=== PATIENT | male | born 1965 | race Caucasian/White ===

== ENCOUNTER → 2023-04-30 | Outpatient (REF) | LOC: M PLAIMG 14:00 | PROVIDERS: ATTEND Internal Medicine | DX: R52 Pain, unspecified (principal) ==

== ENCOUNTER 2024-12-21 17:02 | Inpatient (IN) | payer BC, OTHER ==
[~2024-12-21] VITALS: Ht 188 cm; Wt 101.1 kg
[2024-12-21 17:52] LABS: BASO # 0.1 10^3/uL (0.0-0.2); BASO % 0.2 % (0.0-1.0); EOS # 0.0 10^3/uL (0.0-0.5); EOS % 0.0 % (0.0-3.0); LYMPH # 0.7 10^3/uL (1.5-5.0); LYMPH % 3.0 % (24.0-44.0); MONO # 1.5 10^3/uL (0.0-0.8); MONO % 6.5 % (2.0-8.0); NEUTROPHILS # 20.5 10^3/uL (1.5-8.5); NEUTROPHILS % 89.6 % (36.0-66.0); PLATELET COUNT, AUTOMATED 288 10^3/uL (150-450)
[2024-12-21] MEDS: cefTRIAXone SOD 2 GM in DEXTROSE 5% (D5W) ADV/MINI-BAG 50 ML IV ONE (17:55)
[2024-12-21] MEDS: ACETAMINOPHEN 500 MG TAB PO ONE (17:55)
[2024-12-21 18:04] LABS: ALT/SGPT 12.0 U/L (7.0-40); AST/SGOT 12.0 U/L (<34); CALCIUM LEVEL 9.3 MG/DL (8.3-10.6); CARBON DIOXIDE LEVEL 22.0 MMOL/L (20-31); CHLORIDE LEVEL 103.0 MMOL/L (98-107); CREATININE FOR GFR 1.36 MG/DL (0.70-1.30); GLOMERULAR FILTRATION RATE 59.2 (>49); POTASSIUM SERUM 3.7 MMOL/L (3.5-5.1); SODIUM LEVEL 136.0 MMOL/L (136-145)
[2024-12-21 18:07] LABS: KETONE, URINE AUTO RFX NEGATIVE (NEGATIVE); MUCUS, URINE RFX SMALL (NEGATIVE); NITRITE, URINE AUTO RFX NEGATIVE (NEGATIVE); RBC, URINE AUTO RFX 40 /HPF (0-3); SQUAM EPITHELIAL CELL UR AURFX 2 /HPF (0-6)
[2024-12-21 18:13] LABS: LEUKOCYTE ESTERASE UR AUTO RFX 2+ (NEGATIVE); WBC, URINE AUTO RFX TNTC /HPF (0-3)
[2024-12-21] MEDS: LIDOCAINE 2% 5 ML JELLY UROJET TOP ONE (18:53)
[2024-12-21] MEDS ORDERED: HOME MED LIST COMPLETE! XX SCH (19:35)
[2024-12-21] MEDS ORDERED: ACETAMINOPHEN *IV* 500 MG in IV 1 EA IV PRN (20:25)
[2024-12-21] MEDS: DOCUSATE SODIUM 100 MG CAPSULE PO SCH (21:21)
[2024-12-21] MEDS: HEPARIN SOD 5000 UNITS/ML 1 ML VIAL/SYRINGE SC SCH (21:22)
[2024-12-21] MEDS: NS (Normal Saline) 0.9% 1,000 ML IV ONE (22:32)
[2024-12-21] MEDS: TAMSULOSIN 0.4 MG CAP PO SCH (22:44)
[2024-12-21] MEDS ORDERED: NS (Normal Saline) 0.9% 1,000 ML IV SCH (23:00)
[2024-12-22] MEDS: LR 1,000 ML IV SCH (00:26)
[2024-12-22] MEDS: PANTOPRAZOLE 40MG VIAL IV ONE (01:29)
[2024-12-22] MEDS: ACETAMINOPHEN 500 MG TAB PO PRN (01:29)
[2024-12-22] MEDS: ONDANSETRON 4MG 2ML VIAL IV ONE (01:29)
[2024-12-22 01:30] LABS: AMPHETAMINES LEVEL URINE NEGATIVE (NEGATIVE); BARBITURATES URINE NEGATIVE (NEGATIVE); BENZODIAZEPINES URINE NEGATIVE (NEGATIVE); COCAINE METABOLITE URINE NEGATIVE (NEGATIVE); METHADONE URINE NEGATIVE (NEGATIVE); OPIATES URINE NEGATIVE (NEGATIVE); PHENCYCLIDINE URINE NEGATIVE (NEGATIVE)
[2024-12-22 01:32] LABS: CANNABINOIDS URINE POSITIVE (NEGATIVE)
[2024-12-22 03:17] LABS: C REACTIVE PROTEIN QUANTITATIV 22.52 MG/DL (<1.0)
[2024-12-22] MEDS: FOLIC ACID 1 MG TAB PO SCH (08:16)
[2024-12-22] MEDS: CYANOCOBALAMIN 500 MCG TAB PO SCH (08:16)
[2024-12-22] MEDS: THIAMINE 100 MG TAB PO SCH (08:16)
[2024-12-22 08:28] LABS: BASO # 0.1 10^3/uL (0.0-0.2); BASO % 0.2 % (0.0-1.0); EOS # 0.0 10^3/uL (0.0-0.5); EOS % 0.1 % (0.0-3.0); LYMPH # 1.3 10^3/uL (1.5-5.0); LYMPH % 5.0 % (24.0-44.0); MONO # 1.8 10^3/uL (0.0-0.8); MONO % 6.9 % (2.0-8.0); NEUTROPHILS # 21.8 10^3/uL (1.5-8.5); NEUTROPHILS % 85.1 % (36.0-66.0); PLATELET COUNT, AUTOMATED 224 10^3/uL (150-450)
[2024-12-22 08:56] LABS: CALCIUM LEVEL 8.9 MG/DL (8.3-10.6); CARBON DIOXIDE LEVEL 28.0 MMOL/L (20-31); CHLORIDE LEVEL 103.0 MMOL/L (98-107); CHOLESTEROL LEVEL 146.0 MG/DL (<200); CHOLESTEROL RISK RATIO 3.28 (<5); CREATININE FOR GFR 1.81 MG/DL (0.70-1.30); GLOMERULAR FILTRATION RATE 42.0 (>49); LDL CHOLESTEROL 85.3 MG/DL (<100); NON-HDL-C 101.5 MG/DL; POTASSIUM SERUM 4.3 MMOL/L (3.5-5.1); SODIUM LEVEL 136.0 MMOL/L (136-145); TRIGLYCERIDES LEVEL 81.0 MG/DL (<150)
[2024-12-22 08:57] LABS: PSA SCREENING 8.76 NG/ML (< 4.00)
[2024-12-22 09:34] LABS: ESTIMATED AVERAGE GLUCOSE 108.0 MG/DL (60-110)
[2024-12-22] MEDS: PANTOPRAZOLE 20 MG TAB PO SCH (09:53)
[2024-12-22] MEDS: NS (Normal Saline) 0.9% 1,000 ML IV ONE (09:57)
[2024-12-22] MEDS: NS (Normal Saline) 0.9% 1,000 ML IV SCH (10:59)
[2024-12-22 14:48] VITALS: BP 146/89; TEMP 97.9; O2SAT 95
[2024-12-22] MEDS: cefTRIAXone SOD 2 GM in DEXTROSE 5% (D5W) ADV/MINI-BAG 50 ML IV SCH (17:07)
[2024-12-22 20:21] VITALS: BP 117/65; TEMP 98.3; O2SAT 95
[2024-12-23 04:00] VITALS: BP 116/53; TEMP 97.7; O2SAT 97
[2024-12-23 08:32] VITALS: BP 127/68
[2024-12-23 10:06] LABS: BASO # 0.0 10^3/uL (0.0-0.2); BASO % 0.3 % (0.0-1.0); EOS # 0.0 10^3/uL (0.0-0.5); EOS % 0.1 % (0.0-3.0); LYMPH # 0.9 10^3/uL (1.5-5.0); LYMPH % 6.7 % (24.0-44.0); MONO # 1.2 10^3/uL (0.0-0.8); MONO % 8.4 % (2.0-8.0); NEUTROPHILS # 11.8 10^3/uL (1.5-8.5); NEUTROPHILS % 83.6 % (36.0-66.0); PLATELET COUNT, AUTOMATED 219 10^3/uL (150-450)
[2024-12-23 10:25] LABS: CALCIUM LEVEL 8.1 MG/DL (8.3-10.6); CARBON DIOXIDE LEVEL 27.0 MMOL/L (20-31); CHLORIDE LEVEL 102.0 MMOL/L (98-107); CREATININE FOR GFR 1.62 MG/DL (0.70-1.30); GLOMERULAR FILTRATION RATE 48.0 (>49); POTASSIUM SERUM 3.8 MMOL/L (3.5-5.1); SODIUM LEVEL 137.0 MMOL/L (136-145)
[2024-12-23 11:24] LABS: ALT/SGPT 12.0 U/L (7.0-40); AST/SGOT 15.0 U/L (<34)
[2024-12-23 12:00] VITALS: BP 128/73; TEMP 97.3; O2SAT 97
[2024-12-23 20:56] VITALS: BP_SYST 127; BP_DIAS 73; BP_DIAS 74; TEMP 97.9; O2SAT 96
[2024-12-24 03:54] VITALS: BP 127/73; TEMP 97.5; O2SAT 96
[2024-12-24 09:35] LABS: BASO # 0.0 10^3/uL (0.0-0.2); BASO % 0.5 % (0.0-1.0); EOS # 0.0 10^3/uL (0.0-0.5); EOS % 0.4 % (0.0-3.0); LYMPH # 0.6 10^3/uL (1.5-5.0); LYMPH % 7.5 % (24.0-44.0); MONO # 1.1 10^3/uL (0.0-0.8); MONO % 12.6 % (2.0-8.0); NEUTROPHILS # 6.6 10^3/uL (1.5-8.5); NEUTROPHILS % 78.3 % (36.0-66.0); PLATELET COUNT, AUTOMATED 218 10^3/uL (150-450)
[2024-12-24 10:06] LABS: FREE T4 0.99 NG/DL (0.89-1.76)
[2024-12-24 10:07] LABS: CALCIUM LEVEL 8.5 MG/DL (8.3-10.6); CARBON DIOXIDE LEVEL 25.0 MMOL/L (20-31); CHLORIDE LEVEL 104.0 MMOL/L (98-107); CREATININE FOR GFR 1.49 MG/DL (0.70-1.30); GLOMERULAR FILTRATION RATE 53.1 (>49); POTASSIUM SERUM 3.9 MMOL/L (3.5-5.1); SODIUM LEVEL 138.0 MMOL/L (136-145)
[2024-12-24 12:16] VITALS: BP 128/73; TEMP 98.1; O2SAT 98
[2024-12-24 20:59] VITALS: BP 134/71; TEMP 98.6; O2SAT 95
[2024-12-25 03:56] VITALS: BP 134/72; TEMP 98.1; O2SAT 96
[2024-12-25] MEDS: MIRALAX *UNIT DOSE* 17 GM PACKET PO PRN (09:48)
[2024-12-25 12:00] VITALS: BP 144/88; TEMP 96; O2SAT 96
[2024-12-25] MEDS: SENNA 8.6 MG TAB PO PRN (20:08)
[2024-12-25 20:40] VITALS: BP 134/70; TEMP 97.7; O2SAT 97
[2024-12-26 04:16] VITALS: BP 124/66; TEMP 97.2; O2SAT 98
[2024-12-26] MEDS: BISACODYL 10 MG SUPP PR PRN (09:22)
[2024-12-26 12:01] VITALS: BP 128/68; TEMP 97; O2SAT 97
[2024-12-26 20:50] VITALS: BP 148/80; TEMP 97.3; O2SAT 98
[2024-12-27 03:57] VITALS: BP 108/66; TEMP 97.2; O2SAT 96
[2024-12-27 09:41] LABS: CALCIUM LEVEL 8.7 MG/DL (8.3-10.6); CARBON DIOXIDE LEVEL 28.0 MMOL/L (20-31); CHLORIDE LEVEL 101.0 MMOL/L (98-107); CREATININE FOR GFR 1.19 MG/DL (0.70-1.30); GLOMERULAR FILTRATION RATE 69.5 (>49); MAGNESIUM LEVEL 2.3 MG/DL (1.8-2.4); POTASSIUM SERUM 4.2 MMOL/L (3.5-5.1); SODIUM LEVEL 137.0 MMOL/L (136-145)
[2024-12-27] MEDS: BISACODYL 10 MG SUPP PR SCH (11:30)
[2024-12-27 12:02] VITALS: BP 149/96; TEMP 97; O2SAT 98
[2024-12-27 20:35] VITALS: BP 125/73; TEMP 97.3; O2SAT 97
[2024-12-28 03:37] VITALS: BP 108/65; TEMP 97.7; O2SAT 98
[2024-12-28] MEDS ORDERED: CEFD1CAP9 PO (11:41)
[2024-12-28] MEDS ORDERED: TAMS-18 PO (11:41)
[2024-12-28] MEDS ORDERED: BISA10SU PR (11:41)
[2024-12-28 11:52] VITALS: BP 147/89; TEMP 97.3; O2SAT 98
[2024-12-28] MEDS: FLUZONE VACCINE TRIVALENT PF(25-26) 0.5ML SYRINGE IM.IMMUN ONE (13:00)
[2024-12-28] MEDS: PNEUMOC 21-VAL CONJ-DIP CRM/PF 0.5 ML SYRINGE IM.IMMUN ONE (13:15)
== END 2024-12-28 13:48 | disposition home health service (06) | DRG 720 ==
LOC: M ED 17:02 → EDBD 17:02 → M ED INP 20:21 → M MSPAV 12-22 14:50
PROVIDERS: ADMIT Student in an Organized Health Care Education/Training Program; ATTEND Student in an Organized Health Care Education/Training Program
DX: A41.51 Sepsis due to Escherichia coli [E. coli] (principal); N17.9 Acute kidney failure, unspecified; N13.30 Unspecified hydronephrosis; R39.12 Poor urinary stream; R30.0 Dysuria; N39.0 Urinary tract infection, site not specified; F10.20 Alcohol dependence, uncomplicated; N40.1 Benign prostatic hyperplasia with lower urinary tract symptoms; B96.20 Unspecified Escherichia coli [E. coli] as the cause of diseases classified elsewhere; R41.89 Other symptoms and signs involving cognitive functions and awareness; F81.9 Developmental disorder of scholastic skills, unspecified; K59.00 Constipation, unspecified; E80.6 Other disorders of bilirubin metabolism

== ENCOUNTER 2025-02-09 22:59 | Emergency (ER) | payer OTHER ==
[~2025-02-09] VITALS: Ht 188 cm; Wt 100.0 kg
[~2025-02-09 22:59] MED LIST: BISA10SU PR; CEFD1CAP9 PO; TAMS-18 PO
[2025-02-09] MEDS: LIDOCAINE 2% 5 ML JELLY UROJET TOP ONE (23:53)
[2025-02-10 00:07] VITALS: BP 136/73; TEMP 97.1; O2SAT 97
== END 2025-02-10 00:10 | disposition home or self-care (01) ==
LOC: M ED 22:59
DX: R33.8 Other retention of urine (principal); N40.0 Benign prostatic hyperplasia without lower urinary tract symptoms; Z79.2 Long term (current) use of antibiotics; Z79.899 Other long term (current) drug therapy

== ENCOUNTER → 2025-03-14 | Outpatient (CLI) | payer OTHER ==
[2025-03-14 15:07] LABS: CALCIUM LEVEL 9.4 MG/DL (8.3-10.6); CARBON DIOXIDE LEVEL 30.0 MMOL/L (20-31); CHLORIDE LEVEL 101.0 MMOL/L (98-107); CREATININE FOR GFR 1.16 MG/DL (0.70-1.30); GLOMERULAR FILTRATION RATE 71.7 (>49); POTASSIUM SERUM 4.2 MMOL/L (3.5-5.1); SODIUM LEVEL 139.0 MMOL/L (136-145)
== END ==
LOC: M RAD 13:28
PROVIDERS: ATTEND Urology
DX: R33.9 Retention of urine, unspecified (principal); N13.30 Unspecified hydronephrosis